=== PATIENT | male | born 1985 | race Caucasian/White ===

== ENCOUNTER → 2020-12-24 09:40 | Outpatient (CLI) | payer BC, SELFPAY ==
[2020-12-24 10:05] LABS: Add Manual Diff / Slide Review NO; Basophils Absolute Auto 100 /uL (0-100); Basophils Percent Auto 0.7 % (0-2); Eosinophils Absolute Auto 500 /uL (0-450); Eosinophils Percent Auto 5.7 % (2-4); Hematocrit 45.9 % (41-53); Hemoglobin 15.8 g/dL (13.5-17.5); Lymphocytes Absolute Auto 1800 /uL (1100-4500); Lymphocytes Percent Auto 21.7 % (25-40); Mean Corpuscular HGB Conc 34.4 % (30-36); Mean Corpuscular Hemoglobin 29.9 PG (26-34); Mean Corpuscular Volume 86.9 fL (80-100); Monocytes Absolute Auto 400 /uL (0-900); Monocytes Percent Auto 4.9 % (3-14); Neutrophils Absolute Auto 5600 /uL (1500-7000); Platelet Count 253 X10^3/uL (150-400); Red Blood Cell Count 5.28 X10^6/uL (4.5-5.9); Red Cell Distribution Width 13.6 % (11.6-14.8); White Blood Cell Count 8.3 X10^3/uL (4.5-11.0)
[2020-12-24 10:22] LABS: Alanine Aminotransferase 54 IU/L (<50); Albumin 4.7 g/dL (3.5-5.0); Albumin Globulin Ratio 1.3 (1.0-2.8); Alkaline Phosphatase 111 U/L (38-126); Aspartate Aminotransferase 35 IU/L (17-59); BUN Creatinine Ratio 9.1 (6-22); Bilirubin Total 0.3 mg/dL (0.2-1.3); Blood Urea Nitrogen 9 mg/dL (9-20); Calcium 9.6 mg/dL (8.4-10.2); Carbon Dioxide 27 mmol/L (22-32); Chloride 104 mmol/L (98-107); Estimated Glomerular Filt Rate > 60.0 mL/min (>60); Globulin 3.5 g/dL (1.7-4.1); Glucose 106 mg/dL (70-100); HEMOLYSIS < 15 (0-50); Potassium 4.7 mmol/L (3.4-5.1); Sodium 138 mmol/L (137-145); Total Protein 8.2 g/dL (6.3-8.2)
[2020-12-24 10:29] LABS: Erythrocyte Sedimentation Rate 7 MM/HR (0-15)
[2020-12-24 10:37] LABS: Rheumatoid Factor < 8.6 IU/mL (<12.0)
[2020-12-24 10:40] LABS: Vitamin D 25 Hydroxy (D3) 22.6 ng/mL (30.0-100.0)
[2020-12-24 10:54] LABS: Thyroid Stimulating Hormone 2.12 uIU/mL (0.47-4.68)
[2020-12-26 17:13] LABS: ANA Screen, IFA Negative (.)
== END ==
PROVIDERS: Referring Provider Physician Assistant; Visit Provider Physician Assistant
DX: M25.50 Pain in unspecified joint (principal); F32.9 Major depressive disorder, single episode, unspecified
CPT/HCPCS: 36415; 80053; 82306; 84443; 85025; 85651; 86038; 86430

== ENCOUNTER → 2021-02-11 09:46 | Outpatient (CLI) | payer BC, SELFPAY ==
--- NOTE | 2021-02-11 | DI.US.S_ITS ---
PROCEDURE: US ABDOMEN LIMITED INDICATIONS: Abnormal levels of other serum enzymes TECHNIQUE: Real-time focused scanning was performed of the abdomen, with image documentation. COMPARISON: None. FINDINGS: The liver demonstrates generalized moderately increased echogenicity. This decreases ultrasound sensitivity for detection of hepatic masses. No findings of gallstones or sludge are seen. The gallbladder wall is not thickened, measuring 3 mm or less. No specific pericholecystic fluid is seen. The sonographic Meza sign is negative. There is no biliary dilatation, the common bile duct measures 4 mm. No significant pancreatic abnormality is seen on these images. This study is limited by body habitus. IMPRESSION: The liver demonstrates increased echogenicity. This finding is nonspecific, yet it is most commonly attributed to fatty infiltration. The gallbladder demonstrates a normal sonographic appearance. No biliary dilatation is seen. Dictated by: Jessee Goins M.D. on 02/11/2021 at 9:59 Approved by: Jessee Goins M.D. on 02/11/2021 at 9:59
== END ==
PROVIDERS: PCP Physician Assistant; Referring Provider Physician Assistant; Visit Provider Physician Assistant
DX: R74.8 Abnormal levels of other serum enzymes (principal)
CPT/HCPCS: 76705